=== PATIENT | male | born 2000 | race Caucasian/White ===

== ENCOUNTER → 2021-05-14 14:20 | Outpatient (CLI) | payer BC, SELFPAY ==
--- NOTE | 2021-05-14 14:24 | US_ITS ---
PROCEDURE: US TESTICULAR CLINICAL INDICATION: RT TESTICULAR PAIN COMPARISON: No exams were available for comparison TECHNIQUE: Grayscale and color Doppler ultrasound of the scrotum FINDINGS: RIGHT TESTICLE: The right testicle has an unremarkable appearance measuring 4.1 x 2.8 x 2.9 centimeters. No testicular mass, hydrocele, or varicocele evident. Blood flow is noted to the right testicle. LEFT TESTICLE: The left testicle has an unremarkable appearance measuring 4 x 2.2 x 3.1 centimeters. No testicular mass, hydrocele, or varicocele evident. Blood flow is noted to the left testicle. IMPRESSION: Unremarkable testicular ultrasound. Dictated by: Jessa Tolentino 05/14/2021 16:18 Jessa Tolentino in OV 05/14/2021 16:18
== END ==
PROVIDERS: Visit Provider Family Medicine
DX: N50.811 Right testicular pain (principal)
CPT/HCPCS: 76870

== ENCOUNTER 2022-10-30 15:00 | Outpatient (RCR) | payer BC, SELFPAY | END 2022-11-17 09:08 | disposition home or self-care (01) | LOC: PT.CARL 15:00 | PROVIDERS: Visit Provider Orthopaedic Surgery | DX: M25.611 Stiffness of right shoulder, not elsewhere classified (principal); M25.511 Pain in right shoulder | CPT/HCPCS: 97110; 97140; 97163 ==